=== PATIENT | male | born 1965 | race Caucasian/White ===

== ENCOUNTER 2019-06-14 23:32 | Emergency (ER) | payer MEDICAID ==
[~2019-06-14] VITALS: Ht 185.4 cm; Wt 108.2 kg
[2019-06-15 00:18] LABS: HEMATOCRIT 33.7 % (39.0-50.0); HEMOGLOBIN 9.4 g/dl (14.0-18.0); IMMATURE GRANULOCYTES 0.3 % (0.0-5.0); MEAN CELL VOLUME 71.2 fL CALC (80.0-100.0); MEAN CORPUSCULAR HGB 19.9 pG CALC (26.0-32.0); MEAN CORPUSCULAR HGB CONC 27.9 g/L CALC (32.0-36.0); NEUT# 2.76 thou/uL (1.82-7.42); RED BLOOD COUNT 4.73 mill/uL (4.70-6.10)
[2019-06-15 00:30] LABS: ALBUMIN 3.9 g/dL (3.2-5.0); ALKALINE PHOSPHATASE 213 u/l (38-126); AMYLASE 72 u/l (30-110); ANION GAP 13 (6-22 (CALC)); BILIRUBIN, TOTAL 0.4 mg/dL (0.0-1.4); BUN 9 mg/dL (9-20); BUN/CREATININE RATIO 16 (12-20 (CALC)); CARBON DIOXIDE 25 mmol/l (22-30); CHLORIDE 104 mmol/l (95-108); CREATININE 0.6 mg/dL (0.7-1.3); GFR > 60 ML/MIN (>=60 (CALC)); GFR FOR AFR.AMER. > 60 ML/MIN (>=60 (CALC)); LIPASE 144 u/l (23-300); POTASSIUM 4.4 mmol/l (3.5-5.1); SGOT/AST 36 u/l (17-59); SODIUM 138 mmol/l (137-146); TOTAL PROTEIN 7.4 g/dL (6.3-8.2)
[2019-06-15] MEDS ORDERED: GLIPIZIDE ER10 M1 PO (00:34)
[2019-06-15] MEDS ORDERED: JARDIANCE10 MG (00:34)
[2019-06-15] MEDS ORDERED: BRILINTA90 MG PO ×2 (00:35→00:41)
[2019-06-15] MEDS ORDERED: LEVEMIR100 UNIT/M SC (00:36)
[2019-06-15] MEDS ORDERED: LOPRESSOR50 M2 PO (00:37)
[2019-06-15] MEDS ORDERED: LASIX 40 MG TAB40 MG PO (00:38)
[2019-06-15] MEDS ORDERED: COMBIVENT RESPIMAT IN (00:39)
[2019-06-15] MEDS ORDERED: SYMBICORT1 AE1 IN (00:39)
[2019-06-15 00:41] LABS: MYOGLOBIN 22 ng/mL (0 - 121)
[2019-06-15] MEDS ORDERED: ALBUTEROL108 MCG/AC (00:41)
[2019-06-15] MEDS ORDERED: PROLASTIN C IV (00:42)
[2019-06-15] MEDS ORDERED: LIPITOR80 M1 PO (00:42)
[2019-06-15 00:45] LABS: ACT PARTIAL THROMBO TIME 23.6 SECONDS (20.0-32.5); D-DIMER 0.77 mg/L (0.19-0.60); INTERNATIONAL NORMALIZED RATIO 1.1 RATIO (0.7-1.3); PROTHROMBIN TIME 11.4 SECONDS (9.0-12.5)
[2019-06-15] MEDS ORDERED: KLONOPIN1 MG PO (00:46)
[2019-06-15] MEDS ORDERED: ZOHYDRO ER10 M1 PO (00:46)
[2019-06-15] MEDS ORDERED: PROTONIX40 M2 PO (00:47)
[2019-06-15] MEDS ORDERED: TORADOL PO ×2 (04:56→06:42)
[2019-06-15 05:03] VITALS: BP 130/80
== END 2019-06-15 05:03 | disposition home or self-care (01) ==
LOC: ED 23:32
PROVIDERS: Family Medicine
DX: R07.89 Other chest pain (principal); I10 Essential (primary) hypertension; E11.9 Type 2 diabetes mellitus without complications; Z95.1 Presence of aortocoronary bypass graft; Z95.5 Presence of coronary angioplasty implant and graft; Z79.84 Long term (current) use of oral hypoglycemic drugs
CPT/HCPCS: Q9967

== ENCOUNTER 2019-08-21 05:07 | Emergency (ER) | payer MEDICAID ==
[~2019-08-21] VITALS: Ht 182.9 cm; Wt 106.8 kg
[~2019-08-21 05:07] MED LIST: ALBUTEROL108 MCG/AC; BRILINTA90 MG PO; COMBIVENT RESPIMAT IN; GLIPIZIDE ER10 M1 PO; JARDIANCE10 MG; KLONOPIN1 MG PO; LASIX 40 MG TAB40 MG PO; LEVEMIR100 UNIT/M SC; LIPITOR80 M1 PO; LOPRESSOR50 M2 PO; PROLASTIN C IV; PROTONIX40 M2 PO; SYMBICORT1 AE1 IN; TORADOL PO; ZOHYDRO ER10 M1 PO
[2019-08-21 06:10] VITALS: BP 142/77
[2019-08-21] MEDS ORDERED: FLEXERIL PO ×2 (06:44→06:49)
[2019-08-21] MEDS ORDERED: NAPROXEN500 MG PO (06:44)
== END 2019-08-21 07:00 | disposition home or self-care (01) ==
LOC: ED 05:07
DX: S13.9XXA Sprain of joints and ligaments of unspecified parts of neck, initial encounter (principal); M47.812 Spondylosis without myelopathy or radiculopathy, cervical region; E11.9 Type 2 diabetes mellitus without complications; I10 Essential (primary) hypertension; J44.9 Chronic obstructive pulmonary disease, unspecified; I25.10 Atherosclerotic heart disease of native coronary artery without angina pectoris; I25.2 Old myocardial infarction; X58.XXXA Exposure to other specified factors, initial encounter; Z95.5 Presence of coronary angioplasty implant and graft; Z79.4 Long term (current) use of insulin

== ENCOUNTER 2021-02-21 12:23 | Emergency (ER) | payer MEDICAID ==
[~2021-02-21] VITALS: Ht 185.4 cm; Wt 112.0 kg
[~2021-02-21 12:23] MED LIST changes: +FLEXERIL PO; +NAPROXEN500 MG PO
[2021-02-21] MEDS ORDERED: FIORICET PO (13:55)
[2021-02-21 14:12] VITALS: BP 118/71
== END 2021-02-21 14:19 | disposition home or self-care (01) ==
LOC: ED 12:23
DX: G43.909 Migraine, unspecified, not intractable, without status migrainosus (principal); E11.9 Type 2 diabetes mellitus without complications; I10 Essential (primary) hypertension; J44.9 Chronic obstructive pulmonary disease, unspecified; I25.10 Atherosclerotic heart disease of native coronary artery without angina pectoris; I25.2 Old myocardial infarction; Z95.1 Presence of aortocoronary bypass graft; Z95.5 Presence of coronary angioplasty implant and graft; Z79.4 Long term (current) use of insulin

== ENCOUNTER 2021-11-14 23:55 | Emergency (ER) | payer MEDICAID ==
[~2021-11-14] VITALS: Ht 185.4 cm; Wt 95.0 kg
[~2021-11-14 23:55] MED LIST changes: +FIORICET PO
[2021-11-15 00:32] LABS: IMMATURE GRANULOCYTES 0.3 % (0.0-5.0); MEAN CORPUSCULAR HGB 25.4 pG CALC (26.0-32.0); NEUT# 2.01 thou/uL (1.82-7.42); RED BLOOD COUNT 4.72 mill/uL (4.70-6.10); RED CELL DISTRI WIDTH 14.6 % (11.5-15.5)
[2021-11-15 00:35] LABS: MEAN CELL VOLUME 84.7 fL CALC (80.0-100.0)
[2021-11-15 00:46] LABS: ALBUMIN 3.2 g/dL (3.2-5.0); AMYLASE 57 u/l (30-110); ANION GAP 14 (6-22 (CALC)); BUN 10 mg/dL (9-20); BUN/CREATININE RATIO 18 (12-20 (CALC)); CARBON DIOXIDE 24 mmol/l (22-30); CHLORIDE 101 mmol/l (95-108); CREATININE 0.5 mg/dL (0.7-1.3); GFR > 60 ML/MIN (>=60 (CALC)); GFR FOR AFR.AMER. > 60 ML/MIN (>=60 (CALC)); LIPASE 159 u/l (23-300); POTASSIUM 3.8 mmol/l (3.5-5.1); SGOT/AST 48 u/l (17-59); SODIUM 136 mmol/l (137-146); TOTAL PROTEIN 7.3 g/dL (6.3-8.2)
[2021-11-15 00:47] LABS: ALKALINE PHOSPHATASE 353 u/l (38-126); BILIRUBIN, TOTAL 0.6 mg/dL (0.0-1.4)
[2021-11-15 02:00] LABS: URINE BILIRUBIN - DIPSTICK NEGATIVE (NEGATIVE); URINE BLOOD DIPSTICK TRACE-INTACT (NEGATIVE); URINE COLOR YELLOW; URINE GLUCOSE - DIPSTICK >=1000 mg/dL (NEGATIVE); URINE KETONE NEGATIVE (NEGATIVE); URINE LEUK ESTERASE NEGATIVE (NEGATIVE); URINE PH 6.5 (4.5-8.0); URINE PROTEIN - DIPSTICK NEGATIVE (NEG-TRACE); URINE SPECIFIC GRAVITY <=1.005; URINE UROBILINOGEN - DIPSTICK 0.2 E.U./dL (0.2)
[2021-11-15 02:02] LABS: URINE NITRITE - DIPSTICK NEGATIVE (Negative)
[2021-11-15] MEDS ORDERED: TRAMADOL HCL50 MG PO (02:31)
[2021-11-15] MEDS ORDERED: GABAPENTIN100 MG PO (02:31)
[2021-11-15 03:25] VITALS: BP 159/89
== END 2021-11-15 03:39 | disposition home or self-care (01) ==
LOC: ED 23:55
PROVIDERS: Family Medicine
DX: R10.12 Left upper quadrant pain (principal); R10.32 Left lower quadrant pain; G89.29 Other chronic pain; S36.039D Unspecified laceration of spleen, subsequent encounter; E11.9 Type 2 diabetes mellitus without complications; I10 Essential (primary) hypertension; J44.9 Chronic obstructive pulmonary disease, unspecified; I25.10 Atherosclerotic heart disease of native coronary artery without angina pectoris; I25.2 Old myocardial infarction; Z79.4 Long term (current) use of insulin; Z95.5 Presence of coronary angioplasty implant and graft; Z95.1 Presence of aortocoronary bypass graft; Z79.84 Long term (current) use of oral hypoglycemic drugs; X58.XXXD Exposure to other specified factors, subsequent encounter
CPT/HCPCS: Q9967; S0164

== ENCOUNTER 2021-11-28 21:29 | Emergency (ER) | payer MEDICAID ==
[~2021-11-28] VITALS: Ht 185.4 cm; Wt 100.0 kg
[~2021-11-28 21:29] MED LIST changes: +GABAPENTIN100 MG PO; +TRAMADOL HCL50 MG PO
[2021-11-28 22:23] LABS: HEMATOCRIT 35.9 % (39.0-50.0); HEMOGLOBIN 11.1 g/dl (14.0-18.0); MEAN CELL VOLUME 83.1 fL CALC (80.0-100.0); MEAN CORPUSCULAR HGB 25.7 pG CALC (26.0-32.0); MEAN CORPUSCULAR HGB CONC 30.9 g/dL CAL (32.0-36.0); NEUT# 2.37 thou/uL (1.82-7.42); RED BLOOD COUNT 4.32 mill/uL (4.70-6.10); RED CELL DISTRI WIDTH 15.2 % (11.5-15.5)
[2021-11-28 22:41] LABS: ALKALINE PHOSPHATASE 348 u/l (38-126); ANION GAP 9 (6-22 (CALC)); BILIRUBIN, TOTAL 0.6 mg/dL (0.0-1.4); BUN 8 mg/dL (9-20); BUN/CREATININE RATIO 17 (12-20 (CALC)); CARBON DIOXIDE 24 mmol/l (22-30); CHLORIDE 104 mmol/l (95-108); CPK 24 u/l (52-200); CREATININE 0.5 mg/dL (0.7-1.3); GFR > 60 ML/MIN (>=60 (CALC)); GFR FOR AFR.AMER. > 60 ML/MIN (>=60 (CALC)); MAGNESIUM 1.8 mg/dL (1.6-2.3); POTASSIUM 4.4 mmol/l (3.5-5.1); SGOT/AST 50 u/l (17-59); SODIUM 133 mmol/l (137-146); TOTAL PROTEIN 6.9 g/dL (6.3-8.2)
[2021-11-28] MEDS ORDERED: TRAMADOL HCL50 MG PO (23:48)
[2021-11-28] MEDS ORDERED: GABAPENTIN100 MG PO (23:48)
[2021-11-28 23:59] VITALS: BP 142/79
== END 2021-11-29 00:04 | disposition home or self-care (01) ==
LOC: ED 21:29
PROVIDERS: Family Medicine
DX: E11.42 Type 2 diabetes mellitus with diabetic polyneuropathy (principal); E11.65 Type 2 diabetes mellitus with hyperglycemia; I10 Essential (primary) hypertension; J44.9 Chronic obstructive pulmonary disease, unspecified; I25.10 Atherosclerotic heart disease of native coronary artery without angina pectoris; I25.2 Old myocardial infarction; Z79.4 Long term (current) use of insulin; Z79.84 Long term (current) use of oral hypoglycemic drugs; T42.6X6A Underdosing of other antiepileptic and sedative-hypnotic drugs, initial encounter; Z91.128 Patient's intentional underdosing of medication regimen for other reason; Z95.1 Presence of aortocoronary bypass graft; Z95.5 Presence of coronary angioplasty implant and graft; S36.039D Unspecified laceration of spleen, subsequent encounter; X58.XXXD Exposure to other specified factors, subsequent encounter
CPT/HCPCS: Q9967

== ENCOUNTER 2021-12-06 20:35 | Emergency (ER) | payer MEDICAID | END 2021-12-06 21:20 | disposition left against medical advice (07) | DRG 951 | LOC: ED 20:35 → LWOBS 21:19 | DX: Z53.21 Procedure and treatment not carried out due to patient leaving prior to being seen by health care provider (principal) ==

== ENCOUNTER 2021-12-09 11:51 | Emergency (ER) | payer MEDICAID ==
[~2021-12-09] VITALS: Ht 185.4 cm; Wt 100.0 kg
[~2021-12-09 11:51] MED LIST changes: -JARDIANCE10 MG; +JARDIANCE10 MG PO; -KLONOPIN1 MG PO; +KLONOPIN2 MG PO; +LASIX 20 MG TAB20 MG PO; -LASIX 40 MG TAB40 MG PO
[2021-12-09 12:11] VITALS: BP 108/57
[2021-12-09 12:42] LABS: HEMATOCRIT 35.1 % (39.0-50.0); HEMOGLOBIN 10.7 g/dl (14.0-18.0); IMMATURE GRANULOCYTES 0.3 % (0.0-5.0); MEAN CELL VOLUME 84.2 fL CALC (80.0-100.0); MEAN CORPUSCULAR HGB 25.7 pG CALC (26.0-32.0); MEAN CORPUSCULAR HGB CONC 30.5 g/dL CAL (32.0-36.0); NEUT# 2.39 thou/uL (1.82-7.42); RED BLOOD COUNT 4.17 mill/uL (4.70-6.10); RED CELL DISTRI WIDTH 15.8 % (11.5-15.5)
[2021-12-09 12:57] LABS: ALBUMIN 3.2 g/dL (3.2-5.0); ALKALINE PHOSPHATASE 304 u/l (38-126); ANION GAP 10 (6-22 (CALC)); BILIRUBIN, TOTAL 0.8 mg/dL (0.0-1.4); BUN 11 mg/dL (9-20); BUN/CREATININE RATIO 20 (12-20 (CALC)); CARBON DIOXIDE 21 mmol/l (22-30); CHLORIDE 109 mmol/l (95-108); CREATININE 0.6 mg/dL (0.7-1.3); GFR > 60 ML/MIN (>=60 (CALC)); GFR FOR AFR.AMER. > 60 ML/MIN (>=60 (CALC)); LIPASE 74 u/l (23-300); SGOT/AST 49 u/l (17-59); SODIUM 137 mmol/l (137-146); TOTAL PROTEIN 7.4 g/dL (6.3-8.2)
[2021-12-09 13:01] LABS: ACT PARTIAL THROMBO TIME 25.4 SECONDS (20.0-32.5); INTERNATIONAL NORMALIZED RATIO 1.2 RATIO (0.7-1.3); PROTHROMBIN TIME 12.1 SECONDS (9.0-12.5)
[2021-12-09] MEDS ORDERED: WELLBUTRIN XL150 MG PO (15:36)
[2021-12-09] MEDS ORDERED: NEURONTIN100 MG PO (15:37)
[2021-12-09] MEDS ORDERED: LEXAPRO20 MG PO (15:41)
[2021-12-09] MEDS ORDERED: TAM75CAP PO (15:55)
[2021-12-09 16:00] VITALS: BP 110/60
[2021-12-09] MEDS ORDERED: ALBUTEROL SUL0.083 % IN (16:03)
[2021-12-09 16:11] VITALS: BP 110/60
== END 2021-12-09 16:30 | disposition home or self-care (01) ==
LOC: ED 11:51
DX: J10.1 Influenza due to other identified influenza virus with other respiratory manifestations (principal); J44.9 Chronic obstructive pulmonary disease, unspecified; I10 Essential (primary) hypertension; E11.9 Type 2 diabetes mellitus without complications; I25.10 Atherosclerotic heart disease of native coronary artery without angina pectoris; I25.2 Old myocardial infarction; Z95.5 Presence of coronary angioplasty implant and graft; Z99.81 Dependence on supplemental oxygen; Z95.1 Presence of aortocoronary bypass graft; Z79.84 Long term (current) use of oral hypoglycemic drugs; Z79.4 Long term (current) use of insulin; Z20.822 Contact with and (suspected) exposure to COVID-19
CPT/HCPCS: Q9967

== ENCOUNTER 2022-07-11 20:41 | Emergency (ER) | payer MEDICAID ==
[~2022-07-11] VITALS: Ht 185.4 cm; Wt 95.5 kg
[~2022-07-11 20:41] MED LIST changes: +ALBUTEROL SUL0.083 % IN; +LEXAPRO20 MG PO; +NEURONTIN100 MG PO; +TAM75CAP PO; +WELLBUTRIN XL150 MG PO
[2022-07-11 21:24] VITALS: BP 122/66
[2022-07-11 21:32] VITALS: BP 117/71
== END 2022-07-11 21:30 | disposition home or self-care (01) ==
LOC: ED 20:41
DX: G47.30 Sleep apnea, unspecified (principal); E11.9 Type 2 diabetes mellitus without complications; I10 Essential (primary) hypertension; J44.9 Chronic obstructive pulmonary disease, unspecified; I25.10 Atherosclerotic heart disease of native coronary artery without angina pectoris; I25.2 Old myocardial infarction; Z95.5 Presence of coronary angioplasty implant and graft; Z95.1 Presence of aortocoronary bypass graft; Z79.4 Long term (current) use of insulin

== ENCOUNTER 2022-07-29 19:17 | Emergency (ER) | payer MEDICAID ==
[~2022-07-29] VITALS: Ht 185.4 cm; Wt 100.0 kg
[2022-07-29] MEDS ORDERED: ULTRAM50 M1 PO (20:21)
[2022-07-29] MEDS ORDERED: CYCLOBENZAPRINE10 MG PO (20:21)
[2022-07-29 21:18] VITALS: BP 129/74
== END 2022-07-29 21:34 | disposition home or self-care (01) ==
LOC: ED 19:17
DX: M47.816 Spondylosis without myelopathy or radiculopathy, lumbar region (principal); S73.101A Unspecified sprain of right hip, initial encounter; E11.9 Type 2 diabetes mellitus without complications; I10 Essential (primary) hypertension; J44.9 Chronic obstructive pulmonary disease, unspecified; I25.10 Atherosclerotic heart disease of native coronary artery without angina pectoris; I25.2 Old myocardial infarction; X58.XXXA Exposure to other specified factors, initial encounter; Z95.5 Presence of coronary angioplasty implant and graft; Z95.1 Presence of aortocoronary bypass graft; Z79.84 Long term (current) use of oral hypoglycemic drugs; Z79.4 Long term (current) use of insulin

== ENCOUNTER 2022-12-19 13:14 | Emergency (ER) | payer MEDICAID ==
[~2022-12-19] VITALS: Ht 185.4 cm; Wt 93.4 kg
[~2022-12-19 13:14] MED LIST changes: +CYCLOBENZAPRINE10 MG PO; +ULTRAM50 M1 PO
[2022-12-19 13:44] LABS: URINE BILIRUBIN - DIPSTICK NEGATIVE (NEGATIVE); URINE BLOOD DIPSTICK LARGE (NEGATIVE); URINE COLOR YELLOW; URINE GLUCOSE - DIPSTICK >=1000 mg/dL (NEGATIVE); URINE KETONE NEGATIVE (NEGATIVE); URINE PH 5.5 (4.5-8.0); URINE PROTEIN - DIPSTICK NEGATIVE (NEG-TRACE)
[2022-12-19 13:45] LABS: URINE LEUK ESTERASE SMALL (NEGATIVE); URINE NITRITE - DIPSTICK NEGATIVE (Negative)
[2022-12-19 13:56] LABS: URINE RBC 25-50 RBC/hpf (0-5)
[2022-12-19 13:57] LABS: URINE MUCUS FEW hpf (NONE-FEW); URINE SQUAMOUS EPITHELIAL CELL FEW EPI/hpf (0-FEW)
[2022-12-19 14:02] LABS: URINE BACTERIA MANY hpf
[2022-12-19] MEDS ORDERED: TRAMADOL HYDROC50 M1 PO (15:02)
[2022-12-19] MEDS ORDERED: KEFLEX500 MG PO (15:02)
[2022-12-19 15:16] VITALS: BP 120/66
== END 2022-12-19 15:24 | disposition home or self-care (01) ==
LOC: ED 13:14
PROVIDERS: Nurse Practitioner
DX: S39.012A Strain of muscle, fascia and tendon of lower back, initial encounter (principal); S09.90XA Unspecified injury of head, initial encounter; N39.0 Urinary tract infection, site not specified; I10 Essential (primary) hypertension; E11.9 Type 2 diabetes mellitus without complications; J44.9 Chronic obstructive pulmonary disease, unspecified; I25.10 Atherosclerotic heart disease of native coronary artery without angina pectoris; I25.2 Old myocardial infarction; Z95.5 Presence of coronary angioplasty implant and graft; W10.9XXA Fall (on) (from) unspecified stairs and steps, initial encounter; Z79.4 Long term (current) use of insulin; Z79.84 Long term (current) use of oral hypoglycemic drugs

== ENCOUNTER 2023-02-24 15:45 | Observation (INO) | payer MEDICAID ==
[~2023-02-24] VITALS: Ht 185.4 cm; Wt 86.0 kg
[~2023-02-24 15:45] MED LIST changes: +KEFLEX500 MG PO; +TRAMADOL HYDROC50 M1 PO
[2023-02-24 16:50] LABS: BASO% 0.7 % (0-3); HEMATOCRIT 33.5 % (39.0-50.0); HEMOGLOBIN 10.4 g/dl (14.0-18.0); IMMATURE GRANULOCYTES 0.3 % (0.0-5.0); LYMPH% 27.2 % (15-41); MEAN CORPUSCULAR HGB 26.4 pG CALC (26.0-32.0); MONO% 8.4 % (2-13); NEUT# 1.83 thou/uL (1.82-7.42); NEUT% 61.4 % (42-76); RED BLOOD COUNT 3.94 mill/uL (4.70-6.10); RED CELL DISTRI WIDTH 14.4 % (11.5-15.5)
[2023-02-24 17:02] LABS: ALKALINE PHOSPHATASE 127 u/l (38-126); ANION GAP 8 (6-22 (CALC)); BILIRUBIN, TOTAL 0.4 mg/dL (0.2-1.3); BUN 11 mg/dL (9-20); BUN/CREATININE RATIO 18 (12-20 (CALC)); CARBON DIOXIDE 23 mmol/l (22-30); CHLORIDE 106 mmol/l (95-108); CREATININE 0.6 mg/dL (0.7-1.3); GFR FOR AFR.AMER. > 60 ML/MIN (>=60 (CALC)); GFR OTHER RACES > 60 ML/MIN (>=60 (CALC)); POTASSIUM 3.5 mmol/l (3.5-5.1); SGOT/AST 39 u/l (17-59); SODIUM 134 mmol/l (137-146); TOTAL PROTEIN 5.9 g/dL (6.3-8.2)
[2023-02-24 19:09] VITALS: BP 141/76
[2023-02-24 23:49] VITALS: BP 128/68
[2023-02-25 03:58] VITALS: BP 134/72
[2023-02-25 06:16] LABS: BASO% 0.8 % (0-3); EOS% 3.2 % (0-8); HEMATOCRIT 34.2 % (39.0-50.0); HEMOGLOBIN 10.4 g/dl (14.0-18.0); LYMPH% 30.3 % (15-41); MEAN CELL VOLUME 85.1 fL CALC (80.0-100.0); MEAN CORPUSCULAR HGB 25.9 pG CALC (26.0-32.0); MEAN CORPUSCULAR HGB CONC 30.4 g/dL CAL (32.0-36.0); NEUT# 1.4 thou/uL (1.82-7.42); NEUT% 55.7 % (42-76); RED BLOOD COUNT 4.02 mill/uL (4.70-6.10); RED CELL DISTRI WIDTH 14.5 % (11.5-15.5)
[2023-02-25 06:34] LABS: ALBUMIN 2.9 g/dL (3.2-5.0); ALKALINE PHOSPHATASE 128 u/l (38-126); ANION GAP 6 (6-22 (CALC)); BILIRUBIN, TOTAL 0.4 mg/dL (0.2-1.3); BUN 10 mg/dL (9-20); BUN/CREATININE RATIO 15 (12-20 (CALC)); CARBON DIOXIDE 25 mmol/l (22-30); CHLORIDE 108 mmol/l (95-108); CREATININE 0.6 mg/dL (0.7-1.3); GFR FOR AFR.AMER. > 60 ML/MIN (>=60 (CALC)); GFR OTHER RACES > 60 ML/MIN (>=60 (CALC)); MAGNESIUM 1.6 mg/dL (1.6-2.3); POTASSIUM 3.8 mmol/l (3.5-5.1); SGOT/AST 38 u/l (17-59); SODIUM 135 mmol/l (137-146); TOTAL PROTEIN 5.5 g/dL (6.3-8.2)
[2023-02-25 06:36] VITALS: BP 134/60
[2023-02-25 11:07] VITALS: BP 114/71
== END 2023-02-25 13:00 | disposition home or self-care (01) ==
LOC: ED 15:45 → ED-I 17:10 → ED 17:27 → MS2 17:28
PROVIDERS: Family Medicine; ADMIT Internal Medicine; ATTEND Internal Medicine
DX: R07.89 Other chest pain (principal); F41.1 Generalized anxiety disorder; I10 Essential (primary) hypertension; E11.9 Type 2 diabetes mellitus without complications; I25.10 Atherosclerotic heart disease of native coronary artery without angina pectoris; J44.9 Chronic obstructive pulmonary disease, unspecified; I25.2 Old myocardial infarction; Z95.5 Presence of coronary angioplasty implant and graft; Z95.1 Presence of aortocoronary bypass graft; Z79.84 Long term (current) use of oral hypoglycemic drugs; Z79.4 Long term (current) use of insulin; Z73.3 Stress, not elsewhere classified
CPT/HCPCS: G0378